=== PATIENT | female | born 1980 | race Caucasian/White ===

== ENCOUNTER 2025-09-12 10:20 | Outpatient (RCR) | payer BC, SELFPAY | END 2025-09-12 23:59 | disposition home or self-care (01) | LOC: RPT 10:20 | PROVIDERS: ATTENDING PHYSICIAN Dentist Oral and Maxillofacial Surgery; FAMILY PHYSICIAN Family Medicine | DX: Z47.1 Aftercare following joint replacement surgery (principal); Z73.6 Limitation of activities due to disability; R60.0 Localized edema; R29.3 Abnormal posture; L90.5 Scar conditions and fibrosis of skin; R20.0 Anesthesia of skin; R20.2 Paresthesia of skin; Z96.698 Presence of other orthopedic joint implants | CPT/HCPCS: 97140; 97163; 97530 ==